=== PATIENT | male | born 1940 | race Caucasian/White ===

== ENCOUNTER → 2020-12-09 | Outpatient (CLI) | payer MEDICARE ==
--- NOTE | 2020-12-09 17:35 | RAD ---
XR LUMBAR SPINE 4+V History: Back pain Comparison: None. Technique: 7 views of the lumbar spine. Findings: There are 5 nonrib-bearing lumbar vertebral bodies. Dextroconvex lumbar curvature with apex at L3-L4. Mild anterolisthesis of L2 on L3 and mild retrolisthesis of L3 on L4. No spondylolysis. There is no evidence for fracture. Moderate disc space narrowing L2-L3 L3-L4 and L5-S1. Severe disc space narrowing L4-L5. Marginal oste ophytes throughout the lumbar spine. No destructive osseous lesions are seen. Prominent facet hypertrophy L4-L5 and L5-S1. Bilateral iliac vascular grafts are present. The sacroiliac joints are unremarkable. IMPRESSION: 1. Moderate multilevel lumbar spondylosis greatest at L4-L5. Electronically signed by: Steve Oconnell MD (12/09/2020 5:32 PM) [facility]
== END ==
LOC: RAD 11:44
DX: M47.816 Spondylosis without myelopathy or radiculopathy, lumbar region (principal); M43.16 Spondylolisthesis, lumbar region; M48.07 Spinal stenosis, lumbosacral region; M25.78 Osteophyte, vertebrae; M89.38 Hypertrophy of bone, other site; Z95.828 Presence of other vascular implants and grafts
CPT/HCPCS: 72114